=== PATIENT | male | born 1980 | race Caucasian/White ===

== ENCOUNTER 2016-12-30 19:07 | Emergency (ER) | payer MEDICAID ==
--- NOTE | ~2016-12-30 | ER ---
ADMIT: 12/30/2016 RM/LOC: ER [facility] MR#: [id number] [address] [place] [id number] BRODY MARITZA Garner , Emergency Room Report SEX: M AGE: 36 : 1980 DATE: 12/30/2016 HISTORY OF PRESENT ILLNESS: The patient is a 36-year-old male with a known history of seizure for the last 11 years, nontraumatic, which per family has been diagnosed with hydrocephaly and has been followed up by the primary doctor neurologist, and recently they changed medications. The patient is on Dilantin 100 mg t.i.d. and he is compliant with medication. Mother denies any recent alcohol intake or drug use or taking any other medications. Per family, the patient was passenger in the car and had a similar seizure, similar in quality, which is tonic, but lasted about 2-3 minutes, and after that, the patient was postictal. Per family, previous seizure happened once a year and the patient's seizure looked similar in quality which was tonic, but lasted more than 3 minutes and usually about 10-15 minutes, but this seizure just lasted 2-3 minutes. The patient was postictal after that. Family denies any recent trauma or fall. The patient had normal blood sugar per EMS. The patient was afebrile in the ER, confused, postictal, no obvious signs of trauma, eyes open, does not answer the questions or follow the commands. PHYSICAL EXAMINATION: HEAD AND NECK: The patient had no nystagmus, pupils are 3 mm, reactive to light. CHEST: Normal, clear breath sounds. HEART: Normal S1, S2 without any murmurs. ABDOMEN: Soft. EXTREMITIES: The patient moves all extremities slightly. After the patient became more alert and oriented, the postictal decreased in 20-30 minutes. The patient was reexamined. NEUROLOGIC: The patient has normal motor grossly, normal sensory grossly. Cranial nerves are normal. LABORATORY DATA: Meanwhile, the patient had CT scan of the brain which showed severe hydrocephaly without any shunt. The patient's Dilantin level was 6.8. ADMIT: 12/30/2016 RM/LOC: [facility] MR#: [id number] [address] [id number] MARITZA SKINNER , Emergency Room Report SEX: M AGE: 36 : 1980 After correction with albumin level, the patient was loaded with 450 mg of Dilantin p.o. The patient became more alert and oriented and was in no distress or pain. DISCUSSION: It was discussed with the patient and his family that it is necessary for the patient to call the primary doctor neurologist tomorrow morning if there is any adjustment in dosage of the medications. The patient was stable and was discharged to home. DIAGNOSES: 1. Seizure disorder. 2. Hydrocephaly. 3. Subtherapeutic treatment. Bandar Dillon MD/ maxine JOB #: [id number] CC: Navdeep Amaya MD, Attending Physician
--- NOTE | 2016-12-31 07:36 | CO ---
ADMIT: 12/30/2016 RM/LOC: ER [facility] MR#: [id number] [address] [id number] MARITZA SKINNER [address] [place] [address] Consultation SEX: M AGE: 36 : 1980 DATE OF CONSULTATION: 12/30/2016 ATTENDING PHYSICIAN: Navdeep Amaya CONSULTING PHYSICIAN: Dallas Young MD I was called from the ER from Dr. Dillon for a 36-year-old gentleman who apparently in 2004 had had workup including a bur hole of some type for hydrocephalus. It sounds like the patient has seizures about once a year, usually around 15 minutes long. He apparently had a 3-minute long seizure tonight and presented to the ER because of it. The story that I got from Dr. Dillon is that the patient had followup it sounds like with the neurosurgeon 3 months ago and 1 year ago but has not routinely followed up, and I arrived at 2150 hours to see the patient, but he had left the ER by that point. No examination was possible. Based on the report, it did not sound like he is in a hydrocephalic crisis and his history suggests that this is a long-standing issue. Frankly, if he has made it to 36 with ventricles that are that size, it is relatively unlikely that he would need shunting, although you can never say that there is not a possible uncoupling of an arrested hydrocephalus. If he has any worsening, I would anticipate seeing him back in the ER. Dallas Young MD/ maxine JOB #: [id number] CC: Navdeep Amaya, Attending Physician Maximiliano Stoll, Family Physician
--- NOTE | 2016-12-31 13:42 | ER ---
ADMIT: 12/30/2016 RM/LOC: ER [facility] MR#: [id number] [address] [id number] MARITZA SKINNER [address] [place] [address] Emergency Room Report SEX: M AGE: 36 : 1980 DATE: 12/30/2016 ADDENDUM: I also talked to Dr. Dallas Young, neurosurgeon about the case and also began talking to the patient and told him about the necessity of the questionable surgery and necessity of followup with the neurosurgeon for possible PROSTHODONTIST/EDUCATOR shunt or other choices. The patient acknowledged he already knew that there is a need for surgery and they already had a neurosurgeon and they are going to follow up with the neurosurgeon tomorrow morning. A promise made to follow up with them tomorrow morning and acknowledged that they understood it is very necessary and vital for this followup. The patient was discharged to home. Dr. Young believes that the patient could be discharged to home as long as he has close followups. Bandar Dillon MD/ maxine JOB #: [id number] CC: Navdeep Amaya MD, Attending Physician Maximiliano Stoll MD, Family Physician
== END 2016-12-30 21:30 | disposition home or self-care (01) ==
LOC: ER 19:07
DX: G40.909 Epilepsy, unspecified, not intractable, without status epilepticus (principal); G91.9 Hydrocephalus, unspecified